=== PATIENT | female | born 1945 | race Caucasian/White ===

== ENCOUNTER 2022-07-29 16:17 | Emergency (ER) | payer MEDICARE, SELFPAY ==
[2022-07-29 16:18] VITALS: BP 175/105; PULSE 98; RESP 16; TEMP 36.6; O2SAT 98; BMI 33.3
--- NOTE | 2022-07-29 16:39 | EX.ED.UPPERE ---
HPI History of Present Illness HPI Narrative: Patient presents with right arm injury began today. Patient states she tripped and fell walking into a wedding. Patient landed on her right side. Patient also injured her right knee. Patient states her pain is worse with movement. Patient describes her pain as aching. Patient states it is sharp with movement. Patient denies any paresthesias or weakness. Patient denies any head injury or loss of consciousness. Patient was able to ambulate after the fall. Chief Complaint: Upper Extremity Injury Informant: patient Occured/Mechanism Mechanism/Context: Yes fall and Yes same level fall Onset/Context/Timing Onset: Today Context: Sudden Onset Timing: Continuous Quality of Pain: Sharp and Aching Location: Right arm and right knee Worsened by: Movement Relieved by: Nothing Associated Symptoms Associated Symptoms: Negative for Parasthesia, Weakness or Loss of Funtion [facility] Medical History (Updated 07/29/22 @ 17:[address] Cole Luis DO) Arthritis Home Medications hydrocodone-acetaminophen 5-325mg 5mg-325mg 1 tab PO Q6H PRN PRN Pain 3 days #10 TABLETS 07/29/22 [Rx Last Taken Unknown] Allergy/AdvReac Type Severity Reaction Status Date / Time No Known Allergies Allergy Verified 07/29/22 16:18 Surgical History no surgical history no surgical history Social History Smoking Status: Never smoker ROS ROS ED Constitutional Constitutional ED: Denies chills or fever(s) Eyes Eyes: Denies blurry vision or change in vision ENT ENT ED: Denies rhinorrhea or sore throat Cardiovascular Cardiovascular: Denies chest pain or palpitations Respiratory/Chest Respiratory/Chest: Denies cough or dyspnea Gastrointestinal Gastrointestinal: Denies nausea or vomiting Genitourinary Genitourinary ED: Denies dysuria or hematuria Musculoskeletal Musculoskeletal: Denies back pain or neck pain Integumentary Denies abscess or rash Neurologic Neurologic: Denies headache(s) or weakness Allergic/Immunologic Allergic/Immunologic ED: Denies mouth swelling or urticaria EXAM Physical Exam Const Vital Signs: 07/29/22 16:18 Temperature 97.8 F Temperature Source Temporal Pulse Rate 98 Respiratory Rate 16 Blood Pressure 175/105 H Blood Pressure Mean 128 Pulse Ox 98 Oxygen Delivery Method Room Air Positive well nourished and well developed General Appearance ED: well developed and NAD HEENT Reports moist mucous membranes Neck full ROM General: Negative for tenderness Chest Wall palpation of chest normal Resp normal respiratory effort and clear to auscultation bilaterally Cardio regular rate and regular rhythm GI non-tender Palpation: soft Extremity Extremity Narrative: There is tenderness to the right upper arm and shoulder area. There is some edema. There is no obvious deformity. Range of motion was limited in all motions of the right arm and right shoulder secondary to pain. There is no tenderness over the right elbow or wrist. There is also mild tenderness over the anterior aspect of the right knee. There is no effusion. There is no edema or ecchymosis. There is no bony crepitance or step-off. There is good range of motion of the right knee. Radial and pedal pulses are equal bilaterally. Strength is 5/5 bilaterally in upper and lower extremities. There are no sensory deficits noted. Neuro oriented x3, CN's II-XII intact bilaterally, moves all extremities, no focal motor deficits and no sensory deficits noted Sensorium / Orientation: alert Motor Exam: strength 5/5 throughout Psych mental status grossly normal MDM MDM MDM Narrative Medical decision making narrative: Patient was given dose of [place] here. X-rays of the right knee were obtained. There are 4 views. On my interpretation, there are some degenerative changes. There is no acute fracture or dislocation. Radiologist also interpreted the x-rays and agrees. X-rays of the right humerus were obtained. There are 3 views. On my interpretation, there is a comminuted impacted fracture of the proximal humerus. There is no dislocation. There is some mild soft tissue swelling. Radiologist also interpreted the x-rays and agrees. Patient was placed in a sling and swath. Patient was given a prescription for a short course of [place]. Patient was instructed to follow-up with her primary care physician in 5 to 7 days. Patient understood and was agreeable with the plan. All questions were answered. Discharge Plan Triage Chief Complaint: Upper Extremity Injury ED Provider: Cole Luis Dx/Rx/DC Orders Clinical Impression: Closed fracture of proximal end of right humerus, Fall, Contusion of right knee, initial encounter Instructions: ED Fracture, Upper Extremity Prescriptions: New hydrocodone-acetaminophen [hydrocodone-acetaminophen] 1 TABLET tablet 1 tab PO Q6H PRN PRN (Reason: Pain) 3 Days Qty: 10 0RF Primary Care Provider: Care Physician,No Primary Referrals: Ricardo Guo DO [Med Staff - Active Staff] - 5-7 Days Care Physician,No Primary [Primary Care Provider] - Disposition Disposition: Home, Self Care
[2022-07-29] MEDS: HYDROcodone Bitartrate/Apap 5/325 Tablet PO (16:50)
--- NOTE | 2022-07-29 17:00 | RAD_ITS ---
EXAM: XR RIGHT HUMERUS, 2 OR MORE VIEWS CLINICAL INDICATION: Injury/Pain TECHNIQUE: Frontal and lateral views of the right humerus. This report was created using [employer] report generation technology. COMPARISON: None. FINDINGS: BONES/JOINTS: Comminuted and impacted proximal right humeral fracture. Preservation of the joint space. No sclerotic or destructive changes observed. SOFT TISSUES: Unremarkable. No soft tissue swelling or gas. No radiopaque foreign body. RAD/Humerus min 2 Views IMPRESSION: Comminuted and impacted proximal right humeral fracture. Electronically Signed: Hadley Lee MD at 17:29 EST ,
--- NOTE | 2022-07-29 17:00 | RAD_ITS ---
STUDY: XR Knee Complete 4 Views or More 07/29/2022 5:28 PM REASON FOR EXAM: Female, 77 years old. Injury/Pain TECHNIQUE: XR Knee Complete 4 Views or More RIGHT COMPARISON: None FINDINGS: Normal visualized distal femur. Normal visualized proximal tibia and fibula. Normal proximal tibiofibular articulation. There is moderate degenerative arthrosis of the medial femorotibial compartment with moderate joint space narrowing. Normal lateral femorotibial compartment. There is mild degenerative arthrosis of the patellofemoral articulation. The soft tissue structures are unremarkable. RAD/Knee 4 or More Views IMPRESSION: Degenerative arthrosis. Electronically Signed: Hadley Lee MD at 17:29 EST ,
[2022-07-29 18:55] VITALS: BP 152/78; PULSE 75; RESP 16; O2SAT 94
== END 2022-07-29 18:56 | disposition home or self-care (01) ==
PROVIDERS: Emergency Provider Emergency Medicine; Visit Provider Emergency Medicine
DX: S42.201A Unspecified fracture of upper end of right humerus, initial encounter for closed fracture (principal); S80.01XA Contusion of right knee, initial encounter; M19.90 Unspecified osteoarthritis, unspecified site; W18.30XA Fall on same level, unspecified, initial encounter
CPT/HCPCS: 73060; 73564; 99283